=== PATIENT | male | born 1970 | race Caucasian/White ===

== ENCOUNTER 2017-03-19 19:08 | Emergency (ER) | payer MEDICAID ==
[~2017-03-19] VITALS: Ht 188 cm; Wt 83.9 kg
[2017-03-19 20:03] LABS: BLOOD UREA NITROGEN 14 mg/dL (7-18)
[2017-03-19 20:43] VITALS: BP 134/80
== END 2017-03-19 20:54 | disposition home or self-care (01) ==
LOC: ED 19:59
DX: R53.1 Weakness (principal)
CPT/HCPCS: 36415; 70450; 80048; 82040; 85025

== ENCOUNTER 2017-11-30 19:39 | Emergency (ER) | payer MEDICAID ==
[~2017-11-30] VITALS: Ht 188 cm; Wt 84.9 kg
[2017-11-30 19:44] VITALS: BP 139/78
== END 2017-11-30 21:23 | disposition left against medical advice (07) ==
LOC: ED 21:17
DX: R20.2 Paresthesia of skin (principal)
CPT/HCPCS: 99281